=== PATIENT | female | born 1955 | race Caucasian/White ===

== ENCOUNTER → 2018-01-27 | Outpatient (CLI) | payer MEDICARE, BC ==
[2012-06-13 15:01] VITALS: BP 102/61
[~2018-01-27] MED LIST: CEPHALEXIN500 M1 PO; NORCO 325 MG-51 TAB PO
== END ==
LOC: RAD 12:52 → MAMMO 13:00
DX: Z13.820 Encounter for screening for osteoporosis (principal); M85.80 Other specified disorders of bone density and structure, unspecified site

== ENCOUNTER → 2020-11-27 | Outpatient (CLI) | payer MEDICARE, BC | LOC: MAMMO 13:41 | DX: Z12.31 Encounter for screening mammogram for malignant neoplasm of breast (principal) ==

== ENCOUNTER → 2021-01-29 | Outpatient (CLI) | payer MEDICARE, BC | LOC: LAB 12:54 | DX: U07.1 COVID-19 (principal) ==

== ENCOUNTER → 2022-01-21 | Outpatient (CLI) | payer MEDICARE, BC | LOC: MAMMO 09:09 | DX: Z12.31 Encounter for screening mammogram for malignant neoplasm of breast (principal) ==

== ENCOUNTER → 2023-04-22 | Outpatient (CLI) | payer MEDICARE, BC | LOC: RAD 13:26 | DX: Z13.820 Encounter for screening for osteoporosis (principal); Z12.31 Encounter for screening mammogram for malignant neoplasm of breast; M85.80 Other specified disorders of bone density and structure, unspecified site ==

== ENCOUNTER → 2023-04-22 | Outpatient (CLI) | payer MEDICARE, BC | LOC: MAMMO 13:14 | DX: Z12.31 Encounter for screening mammogram for malignant neoplasm of breast (principal) ==

== ENCOUNTER → 2023-04-27 | Outpatient (CLI) | payer MEDICARE, BC | LOC: RAD 12:56 | DX: M25.551 Pain in right hip (principal) ==